=== PATIENT | female | born 1995 | race Hispanic/Latino ===

== ENCOUNTER 2017-09-09 17:10 | Observation (INO) | payer MEDICAID ==
[~2017-09-09] VITALS: Ht 154.9 cm; Wt 64.4 kg
== END 2017-09-09 19:30 | disposition home or self-care (01) ==
LOC: LDH 17:10
PROVIDERS: ADMIT Obstetrics & Gynecology; ATTEND Obstetrics & Gynecology
DX: O36.8130 Decreased fetal movements, third trimester, not applicable or unspecified (principal); Z3A.35 35 weeks gestation of pregnancy
CPT/HCPCS: 59025; 76819; G0378 ×3